=== PATIENT | female | born 1990 | race Caucasian/White ===

== ENCOUNTER 2021-12-04 08:41 | Emergency (ER) | payer MEDICAID ==
[~2021-12-04] VITALS: Ht 157.5 cm; Wt 113.0 kg
[2021-12-04] MEDS ORDERED: METOCLOPRAMIDE HCL 10MG/2ML VIAL IV ONE (09:15)
[2021-12-04] MEDS ORDERED: DIPHENHYDRAMINE 50MG/ML VIAL IV ONE (09:15)
[2021-12-04] MEDS ORDERED: ACETAMINOPHEN 325MG TABLET PO ONE (09:15)
[2021-12-04] MEDS ORDERED: SODIUM CHLORIDE 0.9% 1,000 ML IV ONE (09:15)
[2021-12-04 09:29] LABS: BASOPHILS % 0.4 % (0.0-2.0); EOSINOPHILS % 3.8 % (0.0-5.0); HEMATOCRIT. 41.7 % (36.0-48.0); HEMOGLOBIN. 14.5 g/dL (12.0-16.0); LYMPHOCYTES % 32.3 % (20.0-50.0); MEAN CORPUSCULAR HEMOGLOBIN 29.5 pg (28.0-32.0); MEAN CORPUSCULAR VOLUME 85.2 fL (81.0-99.0); MEAN PLATELET VOLUME 9.1 fl (7.4-10.4); MONOCYTES % 6.6 % (2.0-8.0); NEUTROPHILS % 56.9 % (40.0-76.0); PLATELET 251 x1000/uL (130-400); RED CELL DISTRIBUTION WIDTH 13.7 % (11.6-14.6)
[2021-12-04 09:35] LABS: HCG SCREEN NEGATIVE
[2021-12-04 09:37] LABS: CHLORIDE 104 mEq/L (98-107)
[2021-12-04 09:41] LABS: ETHANOL BLOOD < 10 mg/dL
[2021-12-04] MEDS ORDERED: LORAZEPAM 2MG/ML CPJ IV SCH (11:15)
[2021-12-04 11:42] LABS: CLARITY URINE CLEAR (CLEAR); COLOR URINE YELLOW (YELLOW); KETONES URINE NEGATIVE (NEGATIVE); LEUKOCYTE ESTERASE URINE NEGATIVE (NEGATIVE); NITRITE URINE NEGATIVE (NEGATIVE); OCCULT BLOOD URINE NEGATIVE (NEGATIVE); PH URINE 6.5 (4.5-8.0); PROTEIN URINE NEGATIVE (NEGATIVE); SPECIFIC GRAVITY URINE 1.006 (1.005-1.030); UROBILINOGEN URINE 0.2 E.U./dL (0.2-1.0)
[2021-12-04 12:08] LABS: *BARBITURATES SCREEN URINE NEGATIVE (NEGATIVE)
[2021-12-04 12:09] LABS: *AMPHETAMINES SCREEN URINE NEGATIVE (NEGATIVE); *BENZODIAZEPINES SCREEN URINE NEGATIVE (NEGATIVE); *COCAINE SCREEN URINE NEGATIVE (NEGATIVE); METHADONE URINE SCREEN NEGATIVE (NEGATIVE); OPIATES URINE SCREEN NEGATIVE (NEGATIVE)
[2021-12-04 12:10] LABS: CANNABINOID URINE SCREEN NEGATIVE (NEGATIVE); PHENCYCLIDINE URINE SCREEN NEGATIVE (NEGATIVE)
[2021-12-04] MEDS ORDERED: ACET-2708 MT (13:05)
[2021-12-04] MEDS ORDERED: METO-293 MT (13:05)
[2021-12-04 14:19] VITALS: BP 113/53
== END 2021-12-04 14:53 | disposition home or self-care (01) ==
LOC: ER 08:41
DX: R55 Syncope and collapse (principal); R51.9 Headache, unspecified; R07.89 Other chest pain
CPT/HCPCS: 36415; 71045; 80053; 80305; 80320; 81003; 84703; 85025; 93005; 96361; 96374; 96375; 99285; J1200; J2060; J2765; J7030; G0480

== ENCOUNTER 2022-09-06 16:00 | Emergency (ER) | payer MEDICAID ==
[~2022-09-06] VITALS: Ht 157.5 cm; Wt 112.0 kg
[~2022-09-06 16:00] MED LIST: ACET-2708 MT; ALBU6.7H3 INH; AZIT250T12 MT; METO-293 MT
[2022-09-06] MEDS ORDERED: KETOROLAC 60MG/2ML VIAL IM ONE (20:15)
[2022-09-06] MEDS ORDERED: CYCLOBENZAPRINE 10MG TABLET PO ONE (20:15)
[2022-09-06 20:41] VITALS: BP 113/78
[2022-09-06] MEDS ORDERED: LIDO700A30 TP (21:46)
[2022-09-06] MEDS ORDERED: IBUP-2029 MT (21:46)
== END 2022-09-06 22:13 | disposition home or self-care (01) ==
LOC: ER 16:00
DX: R51.9 Headache, unspecified (principal); M54.2 Cervicalgia; Z79.899 Other long term (current) drug therapy; Z20.822 Contact with and (suspected) exposure to COVID-19
CPT/HCPCS: 81025; 87426; 96372; 99283; C9803; J1885